=== PATIENT | female | born 1945 | race Caucasian/White ===

== ENCOUNTER → 2025-07-10 13:32 | Outpatient (REF) | payer OTHER, SELFPAY | LOC: RCS 13:32 | PROVIDERS: ATTENDING PHYSICIAN Nurse Practitioner; FAMILY PHYSICIAN Family Medicine | DX: R06.02 Shortness of breath (principal) | CPT/HCPCS: 93306 ==

== ENCOUNTER → 2025-07-14 10:53 | Outpatient (REF) | payer OTHER, SELFPAY | LOC: HWRCS 10:53 | PROVIDERS: ATTENDING PHYSICIAN Nurse Practitioner; FAMILY PHYSICIAN Family Medicine | DX: R07.89 Other chest pain (principal) | CPT/HCPCS: 78452; 93017; A9500; J2785 ==